=== PATIENT | male | born 1985 | race Two or more races ===

== ENCOUNTER 2017-07-07 20:00 | Emergency (ER) | payer OTHER ==
[2017-07-07 20:12] VITALS: BP 133/84; PULSE 64; RESP 18; TEMP 97.2
--- NOTE | 2017-07-07 20:19 | ED ---
General Adult HPI - General Chief complaint: Skin/Abscess/Foreign Body Stated complaint: itchy arms Time Seen by Provider: 07/07/17 20:13 Source: patient, RN notes reviewed Mode of arrival: ambulatory Limitations: no limitations - History of Present Illness Initial comments: 31-year-old male presents emergency Department chief complaint of an itchy arm. Patient states his arm actually yesterday he put an anti-itch cream on it and went away. He got a little bit of a sting to his right arm today and it itched any cuts image him on a went away. Work Note That He Had Itchy Arms and Told Him He Had to Be Evaluated. He Has No Complaints He States the Itching Has Resolved. He States That She Is Not Having Any Other Issues. She Denies Any Recent Exposures. He States He Is Just Here Because Work. Him Come in.Patient denies any recent fever, chills, shortness of breath, chest pain, back pain, abdominal pain, nausea vomiting, numbness or tingling, dysuria or hematuria, constipation or diarrhea, headaches or visual changes, or any other current symptoms. - Related Data Allergies Allergy/AdvReac Type Severity Reaction Status Date / Time No Known Allergies Allergy Verified 07/07/17 20:12 Review of Systems ROS Statement: Those systems with pertinent positive or pertinent negative responses have been documented in the HPI. ROS Other: All systems not noted in ROS Statement are negative. Past Medical History Past Medical History: No Reported History Additional Past Medical History / Comment(s): OCD History of Any Multi-Drug Resistant Organisms: None Reported Past Surgical History: Tonsillectomy Past Psychological History: No Psychological Hx Reported Smoking Status: Never smoker Past Alcohol Use History: None Reported Past Drug Use History: None Reported General Exam Limitations: no limitations General appearance: alert, in no apparent distress Neck exam: Present: normal inspection. Absent: tenderness, meningismus, lymphadenopathy Respiratory exam: Present: normal lung sounds bilaterally. Absent: respiratory distress, wheezes, rales, rhonchi, stridor Cardiovascular Exam: Present: regular rate, normal rhythm, normal heart sounds. Absent: systolic murmur, diastolic murmur, rubs, gallop, clicks Neurological exam: Present: alert, oriented X3, CN II-XII intact Psychiatric exam: Present: normal affect, normal mood Skin exam: Present: warm, dry, intact, normal color, other (Small abrasion/ insect bite to the right forearm no sign of infection.). Absent: rash Course Vital Signs 07/07/17 20:08 Temperature 97.2 F L Pulse Rate 64 Respiratory 18 Rate Blood Pressure 133/84 O2 Sat by Pulse 98 Oximetry Medical Decision Making - Medical Decision Making 31-year-old male presents for chief complaint of history of itchy vaginal bleeding states cream. This time there appears to be one small lesion on the right arm that does appear to be there insect bite or scratch. At this time we discussed care follow-up we discussed return parameters all questions. Patient stated that he understood and he is very plan. All questions have been answered. He will be discharged. Disposition Clinical Impression: Itch of skin Disposition: HOME SELF-CARE Condition: Stable Instructions: Itchy Skin (ED) Additional Instructions: Please use medication as discussed. Please follow up with family doctor if symptoms have not improved over the next two days. Please return to the emergency room if your symptoms increase or worsen or for any other concerns. Referrals: Diana Snell MD [Primary Care Provider] - 1-2 days Time of Disposition: 20:19
== END 2017-07-07 20:31 | disposition home or self-care (01) ==
LOC: EC 20:00
DX: L29.9 Pruritus, unspecified (principal)
CPT/HCPCS: 99282

== ENCOUNTER 2019-05-02 21:33 | Emergency (ER) | payer OTHER ==
[2019-05-02] MEDS ORDERED: DIPH,PERTUS(ACELL)TETVAC-LF 0.5 ML VIAL IM ONE (21:47)
[2019-05-02] MEDS ORDERED: LIDOCAINE 1% INJ 10MG/ML (20 ML MDV) SQ ONE (21:48)
--- NOTE | 2019-05-02 21:56 | ED ---
Fall HPI - General Chief Complaint: Fall Stated Complaint: fall/head lac-[facility] Time Seen by Provider: 05/02/19 21:40 Source: patient Mode of arrival: ambulatory - History of Present Illness Initial Comments: 33-year-old male patient presents to the emergency department today for evaluation of laceration to the left temporal region. Patient states he was at work around 8 PM when he slipped on a wet floor and fell hitting his head on a shelf. Patient states that he is having continued bleeding to the wound so presented for further evaluation. Patient states he initially had some blurred vision which resolved very quickly. He denies any current visual disturbance. Denies headache, nausea, vomiting. He denies any neck or back pain. Denies any other injuries. Patient denies any chest pain, shortness of breath, dizziness, weakness, abdominal pain, or difficulties with bowel movements or urination. - Related Data Allergies Allergy/AdvReac Type Severity Reaction Status Date / Time No Known Allergies Allergy Verified 05/02/19 21:39 Review of Systems ROS Statement: Those systems with pertinent positive or pertinent negative responses have been documented in the HPI. ROS Other: All systems not noted in ROS Statement are negative. Past Medical History Past Medical History: No Reported History Additional Past Medical History / Comment(s): OCD History of Any Multi-Drug Resistant Organisms: None Reported Past Surgical History: Tonsillectomy Past Psychological History: No Psychological Hx Reported Smoking Status: Never smoker Past Alcohol Use History: None Reported Past Drug Use History: None Reported General Exam Limitations: no limitations General appearance: alert, in no apparent distress, other Head exam: Present: other (There is a 4 cm stellate laceration noted to the left temporal area. There is mild active bleeding. No bony step-off or deformity noted to palpation.) Eye exam: Present: normal appearance, PERRL, EOMI. Absent: scleral icterus, conjunctival injection, periorbital swelling, periorbital tenderness ENT exam: Present: normal exam, normal oropharynx, mucous membranes moist, TM's normal bilaterally (No hemotympanum) Neck exam: Present: normal inspection, full ROM, other (Nontender, no step-off, no deformity to firm midline palpation of the posterior cervical spine. Full range of motion without pain or limitation.). Absent: tenderness, meningismus, lymphadenopathy Respiratory exam: Present: normal lung sounds bilaterally. Absent: respiratory distress, wheezes, rales, rhonchi, stridor Cardiovascular Exam: Present: regular rate, normal rhythm, normal heart sounds. Absent: systolic murmur, diastolic murmur, rubs, gallop, clicks Back exam: Present: normal inspection, other (Nontender, no step-off, no deformity to firm midline palpation of the thoracic and lumbar vertebrae. Full range of motion without pain or limitation.). Absent: vertebral tenderness Neurological exam: Present: alert, oriented X3, CN II-XII intact Psychiatric exam: Present: normal affect, normal mood Skin exam: Present: warm, dry, intact, normal color. Absent: rash Course Vital Signs 05/02/19 21:33 Temperature 98.0 F Pulse Rate 57 L Respiratory 20 Rate Blood Pressure 132/67 O2 Sat by Pulse 100 Oximetry Procedures - Laceration Laceration #1 Consent Obtained: verbal consent Indication: laceration Site: face Size (cm): 4 Description: stellate Depth: simple, single layer Anesthetic Used: lidocaine 1% Anesthesia Technique: local infiltration Amount (mls): 4 Pre-repair: irrigated extensively Type of Sutures: nylon Size of Sutures: 6-0 Number of Sutures: 6 Technique: simple, interrupted Patient Tolerated Procedure: well, no complications Medical Decision Making - Medical Decision Making 33-year-old male patient presents to the emergency department today for evaluation of laceration to the left temporal region. Patient had a slip and fall at work. No other injuries. He is neurologically intact with no focal deficits. Physical examination did reveal a 4 cm stellate laceration to the left temporal region. He had no loss of consciousness. Given symptoms and current physical exam imaging is not necessary. He was educated regarding wound care and signs or symptoms of infection. He is instructed to follow-up with his primary care physician or employee health for further evaluation as soon as possible. Return parameters were discussed in detail. He verbalizes understanding and agrees with this plan. Disposition Clinical Impression: Facial laceration Disposition: HOME SELF-CARE Condition: Good Instructions (If sedation given, give patient instructions): Care For Your Stitches (ED), Facial Laceration (ED) Additional Instructions: Cleanse twice daily with warm water and antibacterial soap. Monitor for signs or symptoms of infection including but not limited to redness, swelling, drainage of pus, fever, or chills. Return for signs of worsening head injury including but not limited to severe headache, vomiting, blurred or double vision, confusion, or any other concerning symptoms. Follow-up with her primary care physician for recheck in 1-2 days. Is patient prescribed a controlled substance at d/c from ED?: No Referrals: Diana Snell MD [Primary Care Provider] - 1-2 days Time of Disposition: 22:26
[2019-05-02 22:35] VITALS: BP 129/79; PULSE 77; RESP 16; TEMP 97
== END 2019-05-02 22:34 | disposition home or self-care (01) ==
LOC: EC 21:33
DX: S01.81XA Laceration without foreign body of other part of head, initial encounter (principal); Z23 Encounter for immunization; W01.0XXA Fall on same level from slipping, tripping and stumbling without subsequent striking against object, initial encounter; Y92.69 Other specified industrial and construction area as the place of occurrence of the external cause; Y99.0 Civilian activity done for income or pay
CPT/HCPCS: 90715; 90471; 99283; 12013; J2001

== ENCOUNTER 2020-05-22 16:41 | Emergency (ER) | payer OTHER ==
[2020-05-22 16:50] VITALS: BP 120/72; PULSE 53; RESP 20; TEMP 98.3
--- NOTE | 2020-05-22 17:32 | ED ---
General Adult HPI - General Chief complaint: ENT Stated complaint: Needs ears flushed Time Seen by Provider: 05/22/20 16:53 Source: patient, RN notes reviewed Mode of arrival: ambulatory Limitations: no limitations - History of Present Illness Initial comments: 34-year-old male presents to the emergency room for chief complaint of bilateral ear fullness. Patient reports that every couple years he needs his ear is flushed. Patient reports he feels he needs his ears flushed now. He did follow-up with his doctor but is unable to get an appointment until next month. States it is bothering him so he decided to come to the ER for treatment. He denies pain. Denies decreased hearing. States he did try flushing his ears himself as well as using the candlestick's. Patient has no other complaints at this time including shortness of breath, chest pain, abdominal pain, nausea or vomiting, headache, or visual changes. - Related Data Allergies Allergy/AdvReac Type Severity Reaction Status Date / Time No Known Allergies Allergy Verified 05/22/20 16:50 Review of Systems ROS Statement: Those systems with pertinent positive or pertinent negative responses have been documented in the HPI. ROS Other: All systems not noted in ROS Statement are negative. Past Medical History Past Medical History: No Reported History Additional Past Medical History / Comment(s): OCD History of Any Multi-Drug Resistant Organisms: None Reported Past Surgical History: Tonsillectomy Past Psychological History: No Psychological Hx Reported Smoking Status: Never smoker Past Alcohol Use History: None Reported Past Drug Use History: None Reported General Exam Limitations: no limitations General appearance: alert, in no apparent distress Head exam: Present: atraumatic, normocephalic, normal inspection Eye exam: Present: normal appearance, PERRL, EOMI. Absent: scleral icterus, conjunctival injection, periorbital swelling ENT exam: Present: normal exam, mucous membranes moist. Absent: normal external ear exam (Bilateral cerumen impaction. No tenderness with palpation of the pinna or tragus. No purulent discharge.) Neck exam: Present: normal inspection, full ROM Respiratory exam: Present: normal lung sounds bilaterally. Absent: respiratory distress, wheezes, rales, rhonchi, stridor Cardiovascular Exam: Present: regular rate, normal rhythm, normal heart sounds. Absent: systolic murmur, diastolic murmur, rubs, gallop, clicks Course Vital Signs 05/22/20 16:46 Temperature 98.3 F Pulse Rate 53 L Respiratory 20 Rate Blood Pressure 120/72 O2 Sat by Pulse 99 Oximetry Medical Decision Making - Medical Decision Making Irrigation of the bilateral external auditory canals were performed by LUIS Barnett. I did reevaluate these afterwards. Minimal amount of cerumen remains. Tympanic membranes are non-traumatic. Patient is feeling much better. He will be discharged home to follow-up with his doctor. He will return for any worsening symptoms. Disposition Clinical Impression: Cerumen impaction Disposition: HOME SELF-CARE Condition: Good Instructions (If sedation given, give patient instructions): Cerumen Impaction (ED) Additional Instructions: Please follow-up with your doctor in one to 2 days. Return to the emergency room for any worsening symptoms. Is patient prescribed a controlled substance at d/c from ED?: No Referrals: Diana Snell MD [Primary Care Provider] - 1-2 days Time of Disposition: 17:23
== END 2020-05-22 18:46 | disposition home or self-care (01) ==
LOC: EC 16:41
DX: H61.23 Impacted cerumen, bilateral (principal)
CPT/HCPCS: 69209; 99282